=== PATIENT | female | born 1940 | race Caucasian/White ===

== ENCOUNTER → 2024-03-14 09:47 | Outpatient (CLI) | payer MEDICARE, SELFPAY ==
--- NOTE | 2024-03-14 09:49 | DI.NM.S_ITS ---
PROCEDURE: NM KIERA PERF SPECT REST & STR Rest and exercise myocardial perfusion SPECT with gated imaging and ejection fraction RADIOPHARMACEUTICAL: 25.4 mCi Tc-99m sestamibi IV at rest and 25.7 mCi Tc-99m sestamibi IV at peak exercise. A 2 day-protocol was performed. INDICATIONS: NSVT PQRS ATTESTATIONS: Measure 322 - Is this imaging test primarily performed on a low-risk surgery patient for preoperative evaluation within 30 days preceding their low-risk non-cardiac surgery? Low-risk surgery is defined as cardiac or myocardial infarction less than 1%, including (but not limited to) endoscopic procedures, superficial procedures, cataract surgery, and excisional breast surgery: Answer: No Measure 323 - Is this imaging test performed primarily for the monitoring of an asymptomatic patient who had percutaneous coronary intervention on the visit date or within 2 years of the visit date? Answer: No Measure 324 - Is this imaging test performed primarily for the initial detection and risk assessment on an asymptomatic, low coronary heart disease patient? Low CHD risk definition = clinicians should consider the maximum number of available patient factors used to estimate risk based on [place] (ATP III criteria), typically age, gender, diabetes, smoking status, and use of blood pressure medication, and integrate age appropriate estimates for missing elements, such as LDL or standard blood pressure. Answer: No TECHNIQUE: Radiopharmaceutical was injected at peak stress test, and also at rest. SPECT images were obtained. SPECT myocardial perfusion images were displayed in short axis, horizontal long axis, and vertical long axis views. Gated images were reviewed using RETCQUANT software. COMPARISON: None. CARDIAC STRESS: A standard Jon treadmill exercise tolerance test was performed by the patient under the supervision of an attending staff. The patient exercised for 3 minutes and 47 seconds; functional aerobic impairment (KIMBERLEE) is +8%. Hemodynamic data: There is normal blood pressure and heart rate response to exercise stress. Patient achieved 89% of maximum predicted heart rate at peak exercise. Symptoms: Patient denied chest pain during exercise. EKG: No diagnostic EKG changes of ischemia; no ectopy. FINDINGS: Raw data: There is good myocardial labeling by radiotracer. No significant motion artifacts. Pzie-xu-xboci ratio is 0.37 (normal is less than 0.38 for sestamibi tracer, and less than 0.50 for thallium tracer). Left ventricle function: Gated images demonstrate normal left ventricle wall thickening. No segmental wall motion abnormality. No transient ischemic dilation; TID is 0.67 (normal less than 1.3). The left ventricle resting end-diastolic volume is 67 mL. Left ventricle stress ejection fraction is 71%; normal values are above 45%. Myocardial perfusion: There was a small area of mild hypoperfusion at the basal to mid inferior segment noted in the rest images. However, there were no perfusion defects noted in the stress images. No prone images available. IMPRESSION: 1. Negative exercise myocardial perfusion scan in terms of ischemia and infarction. 2. Mildly reduced exercise tolerance Dictated by: Feng Vivar M.D. on 03/15/2024 at 16:52 Approved by: Feng Vivar M.D. on 03/15/2024 at 16:56
== END ==
LOC: NUCM 09:48
PROVIDERS: Family Provider Physician Assistant Medical; PCP Physician Assistant Medical; Referring Provider Internal Medicine Cardiovascular Disease; Visit Provider Internal Medicine Cardiovascular Disease
DX: I47.29 Other ventricular tachycardia (principal)
CPT/HCPCS: 78452; 93017; A9502

== ENCOUNTER → 2024-03-15 13:43 | Outpatient (CLI) | payer MEDICARE, SELFPAY ==
--- NOTE | 2024-03-15 | DI.ECHO.S_ITS ---
[facility]+ [facility] : : [address] : : [place] : : [id number] : : Phone: [phone] Echocardiogram Report + + :Name: HUBER BOWMAN Study Date: 03/15/2024 Height: 61 in : :Hospital ReadingLocation: Weight: 195 lb: : Gender: Female BSA: 1.9 m2 : :: 1940 Age: 83 yrs : :Reason For Study: NSVT : :Ordering Physician: JASVIR, : :PHILLIP Performed By: Jamal Callejas : :Referring: PHILLIP RIVERA : + + Interpretation Summary Technically difficult study. Poor acoustic windows. 1) Normal left ventricular thickness, size, wall motion, and systolic function (EF 60-65%). 2) Grossly, normal right ventricular size and function. 3) There is mild aortic regurgitation. 4) No prior Echo available for comparison. Procedure: A two-dimensional transthoracic echocardiogram with color flow and Doppler was performed. A contrast injection of Definity was performed to improve assessment of LV function. The study quality was technically difficult. There is no prior echocardiogram noted for this patient. The heart rate ranged between 68-81 bpm during the study. Left Ventricle: The left ventricle is normal in size. Left ventricular wall thickness is normal. Proximal septal thickening is noted. The ejection fraction is estimated to be 60-65%. Left ventricular systolic function appears normal without focal wall motion abnormalities. Diastolic parameters suggest a relaxation abnormality of the left ventricle, consistent with probable normal filling pressures. Right Ventricle: The right ventricle is not well visualized. The right ventricle grossly appears normal in size with probable normal systolic function. Atria: The left atrium is moderately dilated. The right atrium is mildly dilated. The interatrial septum grossly appears intact with no obvious evidence for an atrial septal defect. Mitral Valve: The mitral valve is normal. MAC. There is no mitral valve stenosis. There is trace mitral regurgitation. Aortic Valve: The aortic valve is trileaflet. The aortic valve is mildly calcified. There is no aortic valve stenosis. There is mild aortic regurgitation. Tricuspid Valve: The tricuspid valve is normal. There has been no significant change since the previous study. No tricuspid regurgitation. Pulmonic Valve: The pulmonic valve is not well visualized. There is no pulmonic valvular stenosis. There is trace pulmonic regurgitation. Great Vessels: The aortic root is borderline dilated. The dimensions of the ascending aorta are normal. The inferior vena cava was not visualized. Pericardium/ Pleura There is no pericardial effusion. There is no pleural effusion. MMode/2D Measurements & Calculations LVIDd: 5.1 cm LVOT diam: 2.8 cm LVIDs: 3.6 cm Ao root diam: 3.8 cm FS: 30.0 % asc Aorta Diam: 3.2 cm IVSd: 1.2 cm LVPWd: 0.93 cm LV chan. diameter/BSA (cm/m^2): 2.7 LV sys. diameter/BSA (cm/m^2): 1.9 LA A2 area: 21.1 cm2 LA A4 area: 23.8 cm2 LA length (vol): 5.2 cm LA vol: 82.7 ml LA vol index: 44.3 ml/m2 Doppler Measurements & Calculations Ao V2 max: 166.1 cm/sec LVOT Max Deshawn: 87.8 cm/sec Ao V2 mean: 124.5 cm/sec LV V1 max P.1 mmHg Ao max P.0 mmHg LV V1 VTI: 26.4 cm Ao mean P.7 mmHg JELENA(I,D): 3.6 cm2 Ao V2 VTI: 43.6 cm JELENA(V,D): 3.2 cm2 sev ratio: 0.61 JELENA indexed to BSA (cm^2/m^2): 2.0 MV E max deshawn: 50.0 cm/sec TR max deshawn: 275.7 cm/sec MV A max deshawn: 76.9 cm/sec TR max P.4 mmHg MV E/A: 0.65 PA V2 max: 101.2 cm/sec Med Peak E' Deshawn: 4.8 cm/sec PA V2 mean: 67.1 cm/sec E/E' med: 10.4 PA mean P.1 mmHg Lat Peak E' Deshawn: 5.8 cm/sec PA pr(Accel): 29.3 mmHg E/E' lat: 8.6 E/e' average: 9.5 MV dec time: 0.21 sec SV(LVOT): 159.0 ml Reading Physician:05:05 PM
== END ==
PROVIDERS: Family Provider Physician Assistant Medical; PCP Physician Assistant Medical; Referring Provider Internal Medicine Cardiovascular Disease; Visit Provider Internal Medicine Cardiovascular Disease
DX: I35.1 Nonrheumatic aortic (valve) insufficiency (principal); I70.0 Atherosclerosis of aorta; I47.29 Other ventricular tachycardia
CPT/HCPCS: C8929; Q9957